=== PATIENT | male | born 1995 | race Caucasian/White ===

== ENCOUNTER 2025-06-21 10:10 | Day surgery (SDC) | payer OTHER ==
[2025-06-21] MEDS: Ondansetron 4 MG/2 ML SDV IV STA (11:09)
[2025-06-21] MEDS: LORazepam 2 MG/ML SDV IVPUSH STA (11:09)
[2025-06-21] MEDS ORDERED: Lactated Ringers 1,000 ML ONE (13:46)
[2025-06-21] MEDS ORDERED: Ondansetron 4 MG/2 ML SDV ONE (13:48)
[2025-06-21] MEDS ORDERED: Dexamethasone 4 MG/ML SDV ONE (13:48)
[2025-06-21] MEDS ORDERED: Propofol 200 MG/20 ML SDV ONE (13:48)
[2025-06-21] MEDS ORDERED: Succinylcholine 200 MG/10 ML MDV ONE (13:48)
[2025-06-21] MEDS ORDERED: fentaNYL 100 MCG/2 ML SDV IVPUSH PRN (15:20)
[2025-06-21] MEDS ORDERED: Ondansetron 4 MG/2 ML SDV IVPUSH PRN (15:20)
[2025-06-21] MEDS ORDERED: Benzocaine 20% Oral Spray 59.2 ML Canister MUCMEM ONE (15:21)
== END 2025-06-21 16:40 | disposition home or self-care (01) ==
LOC: JD.ED 10:10 → JD.SDS 13:43
PROVIDERS: ATTEND Surgery
DX: T18.128A Food in esophagus causing other injury, initial encounter (principal); K22.89 Other specified disease of esophagus; E66.9 Obesity, unspecified; Z68.30 Body mass index [BMI] 30.0-30.9, adult
CPT/HCPCS: 43247; 71045; 96361; 96374; 96375; 96376; 99284; J0330; J1100; J1610; J2060; J2405; J2704; J7030; J7120; 00731; 99140; 99283; 99285